=== PATIENT | female | born 1975 | race Two or more races ===

== ENCOUNTER 2018-10-20 11:04 | Emergency (ER) | payer MEDICAID, OTHER ==
[~2018-10-20] VITALS: Ht 162.6 cm; Wt 72.6 kg
[2018-10-20] MEDS ORDERED: KETOROLAC TROMETH 60MG/2ML VIAL IM ONE (11:15)
[2018-10-20 11:16] VITALS: BP 142/87
== END 2018-10-20 13:29 | disposition home or self-care (01) ==
LOC: ER 11:08
DX: M54.5 Low back pain (principal); W01.0XXA Fall on same level from slipping, tripping and stumbling without subsequent striking against object, initial encounter; Y93.23 Activity, snow (alpine) (downhill) skiing, snowboarding, sledding, tobogganing and snow tubing; Y99.8 Other external cause status; Y92.89 Other specified places as the place of occurrence of the external cause
CPT/HCPCS: 72131; 96372; 99284; J1885